=== PATIENT | male | born 1970 | race Caucasian/White ===

== ENCOUNTER 2016-08-26 21:47 | Inpatient (IN) | payer OTHER, MEDICAID ==
[~2016-08-26] VITALS: Ht 142.2 cm; Wt 70.8 kg
[2016-08-26 22:47] LABS: BASOPHIL % 0.4 % (0-2); PLATELET COUNT 227 x10^3mcL (130-400); RED CELL DISTRIBUTION WIDTH 13.2 % (11.5-14.5)
[2016-08-26 22:51] LABS: CALCIUM 8.4 mg/dL (8.5-10.1); CHLORIDE SERUM 104 mmol/L (98-107); CREATININE SERUM 0.7 mg/dL (0.7-1.3); GFR1 > 60 mL/min; GLUCOSE SERUM 126 mg/dL (74-106); POTASSIUM SERUM 3.4 mmol/L (3.5-5.1); SODIUM SERUM 137 mmol/L (136-145)
[2016-08-26 22:56] LABS: ALBUMIN 3.1 g/dL (3.4-5.0); ALKALINE PHOSPHATASE 105 U/L (46-116); ALT/SGPT 53 U/L (16-63); AST/SGOT 30 U/L (15-37); BILIRUBIN TOTAL 0.1 mg/dL (0.20-1.00); TOTAL PROTEIN, SERUM 7.5 g/dL (6.4-8.2)
[2016-08-27] MEDS ORDERED: PHEDML PO (00:25)
[2016-08-27] MEDS ORDERED: VENLAFAXINE HCL75 MG PO (00:26)
[2016-08-27] MEDS ORDERED: TEGRETOL200 MG PO (00:26)
[2016-08-27] MEDS ORDERED: ZONISAMIDE100 M1 PO (00:27)
[2016-08-27] MEDS ORDERED: DEPAKOTE ER250 M1 PO (00:28)
[2016-08-27] MEDS ORDERED: RISPERIDONE4 M2 PO (00:28)
[2016-08-27] MEDS ORDERED: BACTRIM1 TAB PO (00:29)
[2016-08-27] MEDS ORDERED: MYS250 PO (00:30)
[2016-08-27 02:16] LABS: CHOLESTEROL/HDL RATIO 6.4
[2016-08-27 02:20] LABS: T3 TOTAL 1.02 ng/mL
[2016-08-27 02:26] LABS: FREE T4 0.78 ng/dL (0.76-1.46); FREE THYROXINE INDEX 1.9 ug/dL (1.4-4.5); T4(THYROXINE) 5.9 ug/dL (4.7-13.3)
[2016-08-27 02:28] VITALS: BP 125/94
[2016-08-27] MEDS ORDERED: CARBAMAZEPINE300 M1 PO (02:43)
[2016-08-27] MEDS ORDERED: RISPERDAL4 M1 PO (02:48)
[2016-08-27] MEDS ORDERED: MYSOLINE250 M1 PO (02:54)
[2016-08-27 06:11] VITALS: BP 133/80
[2016-08-27 08:30] VITALS: Ht 142.2 cm; Wt 70.8 kg
[2016-08-27 09:58] VITALS: BP 122/75
[2016-08-27 10:00] LABS: microscopic required? NO
[2016-08-27 10:19] LABS: urine erythrocyte NEGATIVE (NEGATIVE)
[2016-08-27 10:32] LABS: AMPHETAMINE QUAL UR NONE DETECTED (NEG <=1000)
[2016-08-27 14:00] VITALS: BP 125/78
[2016-08-27 14:09] LABS: BASOPHIL % 0.3 % (0-2); PLATELET COUNT 222 x10^3mcL (130-400); RED CELL DISTRIBUTION WIDTH 13.5 % (11.5-14.5)
[2016-08-27 14:15] LABS: CALCIUM 8.5 mg/dL (8.5-10.1); CHLORIDE SERUM 105 mmol/L (98-107); CREATININE SERUM 0.6 mg/dL (0.7-1.3); GFR1 > 60 mL/min; GLUCOSE SERUM 114 mg/dL (74-106); POTASSIUM SERUM 3.7 mmol/L (3.5-5.1); SODIUM SERUM 138 mmol/L (136-145)
[2016-08-27 18:01] VITALS: BP 158/86
[2016-08-27 21:22] VITALS: BP 123/77
[2016-08-28 06:42] VITALS: BP 119/77
[2016-08-28 06:57] LABS: BASOPHIL % 0.3 % (0-2); PLATELET COUNT 237 x10^3mcL (130-400); RED CELL DISTRIBUTION WIDTH 13.5 % (11.5-14.5)
[2016-08-28 07:07] LABS: CALCIUM 8.3 mg/dL (8.5-10.1); CARBON DIOXIDE 25.3 mmol/L (21-32); CHLORIDE SERUM 103 mmol/L (98-107); CREATININE SERUM 0.6 mg/dL (0.7-1.3); GFR1 > 60 mL/min; GLUCOSE SERUM 150 mg/dL (74-106); MAGNESIUM 1.8 mg/dL (1.8-2.4); PHOSPHOROUS 3.4 mg/dL (2.5-4.9); SODIUM SERUM 136 mmol/L (136-145)
[2016-08-28 07:50] VITALS: BP 133/86
[2016-08-28 09:20] VITALS: BP 133/86
[2016-08-28 13:15] VITALS: BP 143/78
[2016-08-28 17:15] VITALS: BP 140/85
[2016-08-28 21:11] VITALS: BP 143/86
[2016-08-29 06:11] VITALS: BP 129/74
[2016-08-29 06:12] LABS: BASOPHIL % 0.3 % (0-2); PLATELET COUNT 265 x10^3mcL (130-400); RED CELL DISTRIBUTION WIDTH 13.7 % (11.5-14.5)
[2016-08-29 06:23] LABS: CALCIUM 8.6 mg/dL (8.5-10.1); CARBON DIOXIDE 23.8 mmol/L (21-32); CHLORIDE SERUM 104 mmol/L (98-107); CREATININE SERUM 0.6 mg/dL (0.7-1.3); GFR1 > 60 mL/min; GLUCOSE SERUM 135 mg/dL (74-106); POTASSIUM SERUM 4.4 mmol/L (3.5-5.1); SODIUM SERUM 139 mmol/L (136-145)
[2016-08-29 09:44] VITALS: BP 146/99
[2016-08-29 12:13] VITALS: BP 146/99
[2016-08-29 13:44] VITALS: BP 134/84
[2016-08-29] MEDS ORDERED: LEVAQUIN500 M1 PO (14:20)
[2016-08-29] MEDS ORDERED: CLINDAMYCIN HC300 MG PO (14:20)
[2016-08-29] MEDS ORDERED: LAC PO (14:20)
[2016-08-29] MEDS ORDERED: MEDDP PO (19:27)
== END 2016-08-29 15:58 | disposition home or self-care (01) | DRG 189 ==
LOC: ED 21:47 → MU 08-27 00:37 → DU 08-27 00:37 → MU 08-28 10:51
PROVIDERS: Emergency Medicine; ADMIT Family Medicine
DX: J96.01 Acute respiratory failure with hypoxia (principal); J45.901 Unspecified asthma with (acute) exacerbation; E87.6 Hypokalemia; G40.909 Epilepsy, unspecified, not intractable, without status epilepticus; G47.33 Obstructive sleep apnea (adult) (pediatric); I10 Essential (primary) hypertension; E78.5 Hyperlipidemia, unspecified; Z68.35 Body mass index [BMI] 35.0-35.9, adult; Z96.89 Presence of other specified functional implants
CPT/HCPCS: 36600; 82962; 83880; 84439; J0132; J1956; J2920; J2930; J3480; J3490; J7030; J7613; J7620; J7626; J7644; Q0092